=== PATIENT | male | born 1975 | race Caucasian/White ===

== ENCOUNTER 2020-12-06 12:56 | Emergency (ER) | payer SELFPAY ==
[~2020-12-06] VITALS: Ht 177.8 cm; Wt 63.6 kg
[2020-12-06 13:09] VITALS: TEMP 98
[2020-12-06] MEDS ORDERED: SYNTHROID0.125 MG/T PO (13:23)
[2020-12-06] MEDS ORDERED: PERCOCET 325 MG1 TA2 PO (15:23)
[2020-12-06 16:03] VITALS: BP 120/80; PULSE 80
== END 2020-12-06 16:04 | disposition home or self-care (01) ==
LOC: COL.ER 12:56
DX: S92.061A Displaced intraarticular fracture of right calcaneus, initial encounter for closed fracture (principal); E03.9 Hypothyroidism, unspecified; F17.210 Nicotine dependence, cigarettes, uncomplicated; Z79.890 Hormone replacement therapy; W14.XXXA Fall from tree, initial encounter
CPT/HCPCS: J1885

== ENCOUNTER → 2020-12-07 | Outpatient (CLI) | payer SELFPAY ==
[~2020-12-07] MED LIST: PERCOCET 325 MG1 TA2 PO; SYNTHROID0.125 MG/T PO
== END ==
LOC: COL.RAD 16:00
DX: S92.001A Unspecified fracture of right calcaneus, initial encounter for closed fracture (principal)